=== PATIENT | female | born 1980 | race African-American/Black ===

== ENCOUNTER 2016-11-26 19:14 | Outpatient (CLI) | payer OTHER ==
[~2016-11-26] VITALS: Ht 167.6 cm; Wt 80.5 kg
[2016-11-26 20:20] VITALS: BP 116/66; PULSE 111; RESP 18
[2016-11-26] MEDS ORDERED: FERR134T PO (20:25)
[2016-11-26] MEDS ORDERED: CALC600T11 PO (20:25)
[2016-11-26] MEDS ORDERED: PRENAT PO (20:25)
[2016-11-26 20:59] LABS: ADD UMIC NO; UR ASCORBIC ACID 40 mg/dL (NEGATIVE); UR BACTERIA FEW /HPF (NONE SEEN); UR BILIRUBIN (Dip) NEGATIVE (NEGATIVE); UR BLOOD (Dip) NEGATIVE (NEGATIVE); UR CLARITY SLIGHTLY CLOUDY (CLEAR); UR COLOR YELLOW (YELLOW); UR GLUCOSE (Dip) NEGATIVE (NEGATIVE); UR KETONES (Dip) NEGATIVE (NEGATIVE); UR LEUKOCYTE ESTERASE (Dip) NEGATIVE Leu/ul (NEGATIVE); UR MUCUS FEW /HPF (NONE SEEN); UR NITRITE (Dip) NEGATIVE (NEGATIVE); UR RBC 0 /HPF (0-5); UR SPECIFIC GRAVITY (Dip) 1.025 (1.003-1.030); UR TOTAL PROTEIN (Dip) NEGATIVE (NEGATIVE); UR UROBILINOGEN (Dip) 1+ mg/dL (NEGATIVE)
[2016-11-26 21:15] LABS: BASOPHILS % 0.1 % (0.0-2.0); EOSINOPHILS # 0.1 10^3/ul (0.0-0.5); EOSINOPHILS % 1.3 % (0.0-7.0); HEMATOCRIT 29.9 % (37.0-47.0); HEMOGLOBIN 10.1 g/dl (12.0-16.0); LYMPHOCYTES % 14.3 % (15.0-51.0); MEAN CORPUSCULAR HEMOGLOBIN 32.1 pg (29.0-33.0); MEAN CORPUSCULAR HGB CONC 33.8 g/dl (32.0-37.0); MEAN CORPUSCULAR VOLUME 94.9 fl (82.0-101.0); MONOCYTE # 0.7 10^3/ul (0.3-0.9); MONOCYTES % 9.2 % (0.0-11.0); NEUTROPHILS % 73.1 % (39.0-77.0); PLATELET COUNT 178 10^3/UL (140-415); RED BLOOD COUNT 3.15 10^6/ul (4.20-5.40); WHITE BLOOD COUNT 7.2 10^3/ul (4.8-10.8)
[2016-11-26 21:35] LABS: ALBUMIN 3.2 g/dl (3.3-4.9); BILIRUBIN,INDIRECT 0.1 mg/dl (0-1.1); BILIRUBIN,TOTAL 0.1 mg/dl (0.2-1.3); CALCIUM 8.6 mg/dl (8.4-10.2); CREATININE 0.6 mg/dl (0.44-1.00); POTASSIUM 3.9 mmol/L (3.5-5.1); TOTAL PROTEIN 6.4 g/dl (6.1-8.1)
--- NOTE | 2016-11-26 22:27 | RADRPT ---
PROCEDURE: US OB. CLINICAL INDICATION: labor TECHNIQUE: Pelvic ultrasound performed for biophysical profile. COMPARISON: None available FINDINGS: Single intrauterine gestation present with heart rate at 137 beats per minute. Presentation is ceph alic. Placenta is posterior, grade I. Biophysical profile score is 8/8 (breathing=2, movement=2, t one =2, fluid volume=2). Amniotic fluid volume is within normal limits, with NARA = 15.30 cm. RPTAT:HJJR IMPRESSION: 1. Biophysical profile score 8/8. 2. The amniotic fluid index is estimated at 15.3 cm. 3. Posterior grade 1 placenta. Physician Rhys Date Time Electronically viewed and signed by Physician Rhys on 11/26/2016 22:27 /
--- NOTE | 2016-11-27 01:56 | TRIAGE ---
OB Triage Datetime Report Generated by CPN: 11/27/2016 01:55 Datetime: 11/26/2016 23:47 Stage of : OB Triage Heart Rate FHR Baseline Rate: 140 Monitor Mode: External US Variability: Moderate 6-25 bpm Datetime: 11/26/2016 23:20 Stage of : OB Triage Datetime: 11/26/2016 23:18 Monitor Mode: External Heart Rate FHR Baseline Rate: 140 Monitor Mode: External US Pain Assessment Pain Scale: 2 Pain Presence: Intermittent Pain Type: Cramping Pain Location: Abdomen Pain Assessment Comments: Pt states she feels better Datetime: 11/26/2016 21:23 Labor Evaluation Frequency: 0 Monitor Mode: External Resting Tone Baldwin: Relaxed Heart Rate FHR Baseline Rate: 135 Monitor Mode: External US FHR Baseline Changes: No Baseline Change Variability: Moderate 6-25 bpm Accelerations: 15X15 Datetime: 11/26/2016 20:35 Stage of : OB Triage Monitor Mode: External Resting Tone Baldwin: Relaxed Heart Rate FHR Baseline Rate: 140 Monitor Mode: External US FHR Baseline Changes: No Baseline Change Variability: Moderate 6-25 bpm Accelerations: 15X15 Decelerations: None Category: Category I Datetime: 11/26/2016 20:00 Time of Arrival: 11/26/2016 19:00 EGA: 27.6 Arrived By: Ambulatory Arrived From: Home Chief Complaint: w/ c/o diarrhea and mild abd cramping x 3 days Movement: Present Contractions: Denies/Absent Rupture of Membranes: Denies Vaginal Bleeding: None Vaginal Discharge: Denies Recent Sexual Intercouse: Denies Abdominal Trauma: Not Applicable Patient Complaints: Other Time Provider Notified: 11/26/2016 20:25 Provider Notified: Dr Muñoz Initial Plan: EFM Datetime: 11/26/2016 19:27 Stage of : OB Triage Maternal Assessment Level of Consciousness: Fully Conscious Headache: Denies Blurred Vision: No Respiratory Effort: Unlabored Nausea/Vomiting: Denies RUQ Epigastric Pain: Denies Facial Edema: None Labor Evaluation Frequency: placed Monitor Mode: External Resting Tone Baldwin: Relaxed Heart Rate FHR Baseline Rate: 150 Monitor Mode: External US Pain Assessment Pain Scale: 3 Pain Presence: Intermittent Pain Type: Cramping Pain Location: Abdomen
--- NOTE | 2016-11-27 04:05 | PN ---
Triage Information Date/Time Reason for visit: Diarrhea Weeks of Gestation 27 07/06 /Para Diabetes: none Hypertention: none Additional information 36 Year-old with SIUP at 27 07/06 presents with a chief complaint of diarrhea. She has been receiving her care with Dr. Muñoz. She states good movement. She denies nausea, vomiting, shortness of breath, chest pain, headache, visual changes, vaginal bleeding or LOF. Objective Vital Signs Date Time Temp Pulse Resp B/P Pulse Ox O2 Delivery O2 Flow Rate FiO2 11/26/16 20:20 98.1 111 18 116/66 Room Air Exam General: Patient appears well, alert and oriented, NAD, appropriate mood and affect ABD: gravid, soft, non-tender. Back: No CVA tenderness (B/L) LE: No clubbing, cyanosis, edema, thigh or calf tenderness bilaterally FHT: 135 bpm , moderate variability with acceleration, no deceleration-category I Contractions: None Results/Medications Result Diagram: 11/26/16205411/26/162054 Results 24 hrs Laboratory Tests Test 11/26/16 19:15 11/26/16 20:55 Urine Color YELLOW Urine Clarity SLIGHTLY CLOUDY A Urine pH 6.0 Urine Specific Lyons 1.025 Urine Ketones NEGATIVE Urine Nitrite NEGATIVE Urine Bilirubin NEGATIVE Urine Urobilinogen 1+ H Urine Leukocyte Esterase NEGATIVE Urine Microscopic RBC 0 Urine Microscopic WBC 1 Urine Calcium Oxalate Crystals MANY A Urine Bacteria FEW A Urine Mucus FEW A Urine Hemoglobin NEGATIVE Urine Glucose NEGATIVE Urine Total Protein NEGATIVE White Blood Count 7.2 Red Blood Count 3.15 L Hemoglobin 10.1 L Hematocrit 29.9 L Mean Corpuscular Volume 94.9 Mean Corpuscular Hemoglobin 32.1 Mean Corpuscular Hemoglobin Concent 33.8 Red Cell Distribution Width 15.0 H Platelet Count 178 Mean Platelet Volume 9.0 Neutrophils % 73.1 Lymphocytes % 14.3 L Monocytes % 9.2 Eosinophils % 1.3 Basophils % 0.1 Nucleated Red Blood Cells % 0.0 Neutrophils # (Manual) 5.2 Lymphocytes # 1.0 Monocytes # 0.7 Eosinophils # 0.1 Basophils # 0.0 Nucleated Red Blood Cells # 0.0 Sodium Level 138 Potassium Level 3.9 Chloride Level 106 Carbon Dioxide Level 20 L Anion Gap 16 Blood Urea Nitrogen 8 Creatinine 0.60 Glucose Level 87 Calcium Level 8.6 Total Bilirubin 0.1 L Direct Bilirubin 0.00 Indirect Bilirubin 0.1 Aspartate Amino Transf (AST/SGOT) 19 Alanine Aminotransferase (ALT/SGPT) 33 Alkaline Phosphatase 78 Total Protein 6.4 Albumin 3.2 L Globulin 3.20 Albumin/Globulin Ratio 1.00 Assessment/Plan 36 Year-old with SIUP at 27 4/7 with diarrhea. IVF given. She felt much better, recommend increase fluid intake. - FHR: No sign of metabolic acidosis- Category I - Continuous EFM, toco - Contractions: None. - Reactive NST. BPP: 01/08 - CBC, U/A: wnl. - Symptoms and sign of labor, preeclampsia, kick count discussed with patient, she voiced understanding. All of her questions answered. - Patient was discharged home in stable condition with the appropriate discharge instructions provided. I would like patient to have close follow-up with her primary physician or outpatient clinic in 1-2 days or return to the ER for worsening symptoms or any other urgent concerns. PETRA PARHAM Nov 27, 2016 04:05
== END 2016-11-26 23:55 | disposition home or self-care (01) ==
LOC: OBT 19:14 → L-D 19:14 → OBT 23:55
PROVIDERS: ATTEND Obstetrics & Gynecology
DX: O26.892 Other specified pregnancy related conditions, second trimester (principal); Z3A.27 27 weeks gestation of pregnancy; R19.7 Diarrhea, unspecified
CPT/HCPCS: 36415; 76818; 80053; 81001; 85025; Z7500; 81003; G0463